=== PATIENT | male | born 2000 | race African-American/Black ===

== ENCOUNTER 2024-11-10 10:01 | Emergency (ER) | payer MEDICAID, OTHER ==
[~2024-11-10] VITALS: Ht 177.8 cm; Wt 91.0 kg
[2024-11-10 10:11] VITALS: O2SAT 98
[2024-11-10] MEDS ORDERED: ACET-2708 MT (12:07)
[2024-11-10] MEDS ORDERED: LIDO-53 TP (12:07)
[2024-11-10 12:48] VITALS: BP 127/89; PULSE 60; RESP 18; TEMP 36.8; O2SAT 99
== END 2024-11-10 12:49 | disposition home or self-care (01) ==
LOC: ER 10:01
DX: S09.8XXA Other specified injuries of head, initial encounter (principal); J45.909 Unspecified asthma, uncomplicated; W22.09XA Striking against other stationary object, initial encounter; Y93.89 Activity, other specified; Y92.410 Unspecified street and highway as the place of occurrence of the external cause; Y99.8 Other external cause status
CPT/HCPCS: 71250; 73700; 74176; 99284